=== PATIENT | female | born 1995 | race Caucasian/White ===

== ENCOUNTER 2019-11-10 16:31 | Emergency (ER) | payer BC ==
[~2019-11-10] VITALS: Ht 162.6 cm; Wt 105.2 kg
[~2019-11-10 16:31] MED LIST: IBUP800 PO
[2019-11-10] MEDS ORDERED: Levaquin750 MG (17:12)
[2019-11-10] MEDS ORDERED: Sprintec1 EACH PO (17:12)
[2019-11-10 17:19] LABS: Influenza A Positive (NEGATIVE); Influenza B Negative (NEGATIVE)
[2019-11-10] MEDS ORDERED: KETO10 PO (17:31)
[2019-11-10] MEDS ORDERED: ONDA4ODT MM (17:31)
== END 2019-11-10 17:41 | disposition home or self-care (01) ==
LOC: ER 16:31
PROVIDERS: Physician Assistant
DX: J10.1 Influenza due to other identified influenza virus with other respiratory manifestations (principal)
CPT/HCPCS: 87081; 87430; 87804; 99283